=== PATIENT | female | born 1990 | race Caucasian/White ===

== ENCOUNTER 2021-05-18 20:34 | Inpatient (IN) | payer MEDICAID ==
[~2021-05-18] VITALS: Ht 180.3 cm; Wt 116.0 kg
[2021-05-18] MEDS ORDERED: FAMOTIDINE 20MG/2ML VIAL IV STA (23:51)
[2021-05-18] MEDS ORDERED: ONDANSETRON HCL 4MG/2ML INJ IV STA (23:51)
[2021-05-18] MEDS ORDERED: KETOROLAC 30MG/ML VIAL IV STA (23:51)
[2021-05-19 00:33] LABS: CHLORIDE 107 mEq/L (98-107)
[2021-05-19 00:54] LABS: HCG SCREEN NEGATIVE
[2021-05-19 01:24] LABS: BASOPHILS % 0.5 % (0.0-2.0); EOSINOPHILS % 0.9 % (0.0-5.0); HEMATOCRIT. 22.5 % (36.0-48.0); MEAN CORPUSCULAR HEMOGLOBIN 16.2 pg (28.0-32.0); MEAN CORPUSCULAR VOLUME 58.4 fL (81.0-99.0); MEAN PLATELET VOLUME 9.2 fl (7.4-10.4); MONOCYTES % 9.9 % (2.0-8.0); NEUTROPHILS % 65.7 % (40.0-76.0); PLATELET 185 x1000/uL (130-400); RED BLOOD CELL COUNT 3.85 mill/uL (4.2-5.4)
[2021-05-19 01:29] LABS: CLARITY URINE TURBID (CLEAR); COLOR URINE DARK YELLOW (YELLOW); KETONES URINE 1+ (NEGATIVE); LEUKOCYTE ESTERASE URINE 1+ (NEGATIVE); NITRITE URINE POSITIVE (NEGATIVE); OCCULT BLOOD URINE 3+ (NEGATIVE); PH URINE 5.5 (4.5-8.0); PROTEIN URINE 2+ (NEGATIVE); SPECIFIC GRAVITY URINE 1.026 (1.005-1.030)
[2021-05-19] MEDS ORDERED: HYDROCODONE/ACETAMINOPHEN 5/325MG TABLET PO NR (01:35)
[2021-05-19 01:40] LABS: HEMOGLOBIN. 6.2 g/dL (12.0-16.0)
[2021-05-19 01:41] LABS: PLATELET ESTIMATE NORMAL
[2021-05-19] MEDS ORDERED: CEFTRIAXONE 1 G PREMIX 50 ML IV NR (02:30)
[2021-05-19] MEDS ORDERED: ACETAMINOPHEN 325MG TABLET PO NR (03:45)
[2021-05-19 06:33] VITALS: BP 130/72
[2021-05-19] MEDS ORDERED: FERR-71 MT (09:14)
[2021-05-19] MEDS ORDERED: LEVO500T89 MT (09:14)
[2021-05-19] MEDS ORDERED: CEFTRIAXONE 1 G PREMIX 50 ML IV SCH (09:15)
[2021-05-19] MEDS ORDERED: ACETAMINOPHEN 325MG TABLET PO PRN (09:15)
[2021-05-19] MEDS ORDERED: ONDANSETRON HCL 4MG/2ML INJ IV PRN (09:15)
== END 2021-05-19 08:02 | disposition left against medical advice (07) | DRG 663 ==
LOC: ER 20:34 → MICUSO 05-19 03:44
PROVIDERS: ADMIT Internal Medicine; ATTEND Internal Medicine
PROC: 30233N1 Transfusion of Nonautologous Red Blood Cells into Peripheral Vein, Percutaneous Approach (ICD-10-PCS; principal; 2021-05-19)
DX: D64.9 Anemia, unspecified (principal); K80.20 Calculus of gallbladder without cholecystitis without obstruction; R10.9 Unspecified abdominal pain; Z98.891 History of uterine scar from previous surgery; N39.0 Urinary tract infection, site not specified
CPT/HCPCS: 36415; 76705; 80053; 81003; 84703; 85025; 86850; 86900; 86920; 99285; J0696; J1885; J2405; J3490; P9016

== ENCOUNTER 2022-07-20 10:25 | Emergency (ER) | payer MEDICAID ==
[~2022-07-20] VITALS: Ht 180.3 cm; Wt 100.0 kg
[~2022-07-20 10:25] MED LIST: FERR-71 MT; LEVO-65 MT
[2022-07-20 10:43] VITALS: BP 154/70
[2022-07-20] MEDS ORDERED: IBUPROFEN 600MG TABLET PO ONE (11:00)
== END 2022-07-20 13:07 | disposition left against medical advice (07) ==
LOC: ER 10:25
DX: B34.9 Viral infection, unspecified (principal); Z98.890 Other specified postprocedural states
CPT/HCPCS: 99281